=== PATIENT | male | born 1960 | race Caucasian/White ===

== ENCOUNTER 2019-02-16 15:30 | Outpatient (CLI) | payer MEDICARE ==
[~2019-02-16] VITALS: Ht 165.1 cm; Wt 104.5 kg
[~2019-02-16 15:30] MED LIST: LORA1TAB PO; NORVASC; ONDAN4ODT PO; [UNRECOGNIZED DRUG - OTHER]; [UNRECOGNIZED DRUG - REMARK]
[2019-02-16] MEDS ORDERED: LOSA100T57 PO (16:07)
[2019-02-16] MEDS ORDERED: TRAM50TA2 PO (16:07)
[2019-02-16] MEDS ORDERED: HYDR25TA4 PO (16:07)
[2019-02-16] MEDS ORDERED: VARD20TA30 PO (16:07)
[2019-02-16] MEDS ORDERED: TRIA0.2581 PO (16:07)
[2019-02-16] MEDS ORDERED: OMEP20TA33 PO (16:07)
[2019-02-16] MEDS ORDERED: CYCL10TA9 PO (16:07)
[2019-02-16] MEDS ORDERED: NAPR-915 PO (16:07)
[2019-02-16] MEDS ORDERED: ATOR20TA66 PO (16:07)
[2019-02-16] MEDS ORDERED: ASPI-808 PO (16:07)
[2019-02-21] MEDS ORDERED: PANT40TA2 PO (13:20)
== END 2019-02-16 16:08 | disposition home or self-care (01) ==
LOC: PREOP 15:30
PROVIDERS: ATTEND Surgery
DX: Z01.818 Encounter for other preprocedural examination (principal)

== ENCOUNTER 2022-04-09 11:14 | Observation (INO) | payer MEDICARE ==
[~2022-04-09] VITALS: Ht 162.5 cm; Wt 92.9 kg
[~2022-04-09 11:14] MED LIST changes: +ASPI-808 PO; +ATOR20TA66 PO; +CYCL10TA25 PO; +HYDR25TA4 PO; +LOSA100T57 PO; +NAPR-915 PO; +OMEP20TA33 PO; +PANT40TA2 PO; +TRIA0.2581 PO; +TRM50T PO; +VARD20TA30 PO
[2022-04-09 11:36] LABS: BASOPHILS # (AUTO) 0.1 10^3/uL (0.0-0.1); BASOPHILS % (AUTO) 1 % (0-10); EOSINOPHILS # (AUTO) 0.2 10^3/uL (0.0-0.3); EOSINOPHILS % (AUTO) 3 % (0-10); HEMATOCRIT 50 % (40-54); HEMOGLOBIN 16.8 g/dL (13.3-17.7); LYMPHOCYTES # (AUTO) 2.1 10^3/uL (1.0-4.0); LYMPHOCYTES % (AUTO) 27 % (12-44); MEAN CORPUSCULAR HEMOGLOBIN 27 pg (25-34); MEAN CORPUSCULAR HGB CONC 34 g/dL (32-36); MEAN CORPUSCULAR VOLUME 82 fL (80-99); MEAN PLATELET VOLUME 11.9 fL (9.0-12.2); MONOCYTES # (AUTO) 0.9 10^3/uL (0.0-1.0); MONOCYTES % (AUTO) 12 % (0-12); NEUTROPHILS # (AUTO) 4.5 10^3/uL (1.8-7.8); NEUTROPHILS % (AUTO) 57 % (42-75); PLATELET COUNT 223 10^3/uL (130-400); WHITE BLOOD COUNT 7.8 10^3/uL (4.3-11.0)
--- NOTE | 2022-04-09 11:43 | ED Neurological Problem ---
General Chief Complaint: Neuro-Stroke Like Symptoms Stated Complaint: POSSIBLE STROKE Source: patient Exam Limitations: no limitations History of Present Illness Date Seen by Provider: Apr 09, 2022 Time Seen by Provider: 11:25 Initial Comments 62-year-old male presents to the ER via private vehicle with significant other with complaints of stroke-like symptoms. Patient had first presented to the clinic, clinic sent him over here. Patient reports his symptoms started yesterday morning. Patient reports he woke up yesterday morning around 2 or 3:00 in the morning with complaints of a headache and he took some medication for it at that time. Reports he woke up later in the morning with weakness to his right side. Patient reports feeling like his face is drooping on the right side. Reports feeling as though his compliance examiner strength on the right is weaker. Reports that when he is walking he feels as though he has difficulty with his right leg at times. Patient is hypertensive. Patient states he recently restarted his losartan he had been off of it for 6 months to 1 year. Patient reports he has not seen his primary care provider in over a year. States he occasionally checks his blood pressure at home and decided to restart his medication on his own. Patient currently takes aspirin, atorvastatin, losartan, cyclobenzaprine, and vardenafil occasionally. He last took vardenafil 2 months ago. Timing/Duration: 24 hours Allergies and Home Medications Allergies Coded Allergies: No Known Drug Allergies (Verified , 02/21/19) Patient Home Medication List Home Medication List Reviewed: Yes Aspirin (Aspirin) 325 Mg Tablet, 325 MG PO DAILY, (Reported) Entered as Reported by: LYNN CASTRO on 02/16/191606 Atorvastatin Calcium (Atorvastatin Calcium) 20 Mg Tablet, 20 MG PO HS, (Reported) Entered as Reported by: LYNN CASTRO on 02/16/191606 Cyclobenzaprine HCl (Cyclobenzaprine HCl) 10 Mg Tablet, 10 MG PO DAILY, (Reported) Entered as Reported by: LYNN CASTRO on 02/16/191606 Hydrochlorothiazide (Hydrochlorothiazide) 25 Mg Tablet, 25 MG PO DAILY, (Reported) Entered as Reported by: LYNN CASTRO on 02/16/191606 Losartan Potassium (Losartan Potassium) 100 Mg Tablet, 100 MG PO DAILY, (Repo rted) Entered as Reported by: LYNN CASTRO on 02/16/19 160 Naproxen (Naproxen) 500 Mg Tablet, 500 MG PO BID WITH MEALS, (Reported) Entered as Reported by: LYNN CASTRO on 02/16/19 160 Pantoprazole Sodium (Protonix) 40 Mg Tablet.dr, 40 MG PO DAILY Prescribed by: EDMUND PEREZ on 02/21/19 1320 Tramadol HCl (Tramadol HCl) 50 Mg Tablet, 50 MG PO Q6H PRN for PAIN-MILD, (Reported) Entered as Reported by: LYNN CASTRO on 02/16/19 160 Triazolam (Triazolam) 0.25 Mg Tablet, 0.25 MG PO HS PRN for SLEEP, (Reported) Entered as Reported by: LYNN CASTRO on 02/16/19 160 Vardenafil HCl (Levitra) 20 Mg Tablet, 20 MG PO DAILY PRN for ERECTILE DYSFUNCTION, (Reported) Entered as Reported by: LYNN CASTRO on 02/16/19 160 Review of Systems Review of Systems Constitutional: weakness Eyes: No Symptoms Reported Respiratory: no symptoms reported Cardiovascular: no symptoms reported Genitourinary: no symptoms reported Musculoskeletal: muscle weakness Skin: no symptoms reported Psychiatric/Neurological: Numbness (right hand), Tingling (right hand) Past Zxyghoe-Kgpjzc-Ridkol Hx Patient Social History Smoking Status: Former Smoker Substance type: Marijuana Substance frequency: Daily Alcohol Use?: Yes Alcohol Frequency: Once in a while Seasonal Allergies Seasonal Allergies: Yes Past Medical History Surgeries: Yes (umb hernia, heel fx, ) Orthopedic (right foot) Respiratory: Yes Sleep Apnea Currently Using CPAP: No (can't tolerate) Cardiac: Yes High Cholesterol, Hypertension, Palpitations Neurological: No Genitourinary: No Gastrointestinal: Yes Gastroesophageal Reflux Musculoskeletal: Yes Arthritis, Chronic Back Pain, Fractures Endocrine: No HEENT: No Cancer: No Psychosocial: No Integumentary: No Blood Disorders: No Physical Exam Vital Signs Vital Signs - First Documented 04/09/22 11:18 Pulse 70 Resp 16 B/P (MAP) 241/133 (169) Pulse Ox 97 O2 Delivery Room Air Capillary Refill : Height, Weight, BMI Height: '" Weight: lbs. oz. kg; 38.33 BMI Method: General Appearance: WD/WN, no apparent distress HEENT: PERRL/EOMI Neck: full range of motion, supple, normal inspection Respiratory: lungs clear, normal breath sounds, no respiratory distress, no accessory muscle use Cardiovascular: regular rate, rhythm, no edema, no gallop, no JVD, no murmur Neurologic/Psychiatric: data virtualization consultant II-XII nml as tested, alert, normal mood/affect, oriented x 3, sensory deficit (tingling right hand, sensation intact) Crainal Nerves: normal hearing, normal speech, PERRL Coordination/Gait: normal finger to nose, normal gait Motor/Sensory: no motor deficit Skin: normal color, warm/dry Stroke Onset of Symptoms Date of Onset of Symptoms: Apr 08, 2022 NIH Stroke Scale Assessment Select: Initial Level of Consciousness: 0=Alert (0), Level of Consciousness-Questions: 0=Answers both month/age (0), LOC Commands: 0=Performs both tasks (0), Gaze: Normal (0), Visual Akbar: 0=No visual loss (0), Facial Movement (Facial Paresis): 0=Normal symmetrical mnt (0), Motor Function-Arms Right: 0=No drift (0), Motor Function-Arms Left: 0=No drift (0), Motor Function-Legs Right: 0=No drift (0), Motor Function-Legs Left: 0=No drift (0), Limb Ataxia: 0=Absent (0), Sensory: 0=Normal:no loss (0), Best Language: 0=No aphasia (0), Dysarthria: 0=Normal (0), Extinction & I nattention: 0=No abnormality (0), Total: 0 Progress/Results/Core Measures Results/Orders Lab Results Laboratory Tests Test 04/09/22 11:20 04/09/22 11:23 04/09/22 11:48 Range/Units White Blood Count 7.8 4.3-11.0 10^3/uL Red Blood Count 6.13 H 4.30-5.52 10^6/uL Hemoglobin 16.8 13.3-17.7 g/dL Hematocrit 50 40-54 % Mean Corpuscular Volume 82 80-99 fL Mean Corpuscular Hemoglobin 27 25-34 pg Mean Corpuscular Hemoglobin Concent 34 32-36 g/dL Red Cell Distribution Width 14.7 H 10.0-14.5 % Platelet Count 223 130-400 10^3/uL Mean Platelet Volume 11.9 9.0-12.2 fL Immature Granulocyte % (Auto) 0 % Neutrophils (%) (Auto) 57 42-75 % Lymphocytes (%) (Auto) 27 12-44 % Monocytes (%) (Auto) 12 0-12 % Eosinophils (%) (Auto) 3 0-10 % Basophils (%) (Auto) 1 0-10 % Neutrophils # (Auto) 4.5 1.8-7.8 10^3/uL Lymphocytes # (Auto) 2.1 1.0-4.0 10^3/uL Monocytes # (Auto) 0.9 0.0-1.0 10^3/uL Eosinophils # (Auto) 0.2 0.0-0.3 10^3/uL Basophils # (Auto) 0.1 0.0-0.1 10^3/uL Immature Granulocyte # (Auto) 0.0 0.0-0.1 10^3/uL Prothrombin Time 16.3 H 12.2-14.7 SEC INR Comment 1.3 0.8-1.4 Activated Partial Thromboplast Time 28 24-35 SEC D-Dimer 0.30 0.00-0.49 UG/ML Sodium Level 137 135-145 MMOL/L Potassium Level 4.1 3.6-5.0 MMOL/L Chloride Level 105 98-107 MMOL/L Carbon Dioxide Level 23 21-32 MMOL/L Anion Gap 9 5-14 MMOL/L Blood Urea Nitrogen 23 H 7-18 MG/DL Creatinine 1.23 0.60-1.30 MG/DL Estimat Glomerular Filtration Rate 66 BUN/Creatinine Ratio 19 Glucose Level 105 70-105 MG/DL Calcium Level 10.0 8.5-10.1 MG/DL Corrected Calcium 9.8 8.5-10.1 MG/DL Total Bilirubin 0.5 0.1-1.0 MG/DL Aspartate Amino Transf (AST/SGOT) 19 5-34 U/L Alanine Aminotransferase (ALT/SGPT) 23 0-55 U/L Alkaline Phosphatase 63 40-136 U/L Troponin I < 0.028 <0.028 NG/ML Total Protein 7.5 6.4-8.2 GM/DL Albumin 4.2 3.2-4.5 GM/DL Glucometer 107 70-110 MG/DL Urine Color YELLOW Urine Clarity CLEAR Urine pH 5.0 5-9 Urine Specific [place] >=1.030 1.016-1.022 Urine Protein TRACE H NEGATIVE Urine Glucose (UA) NEGATIVE NEGATIVE Urine Ketones NEGATIVE NEGATIVE Urine Nitrite NEGATIVE NEGATIVE Urine Bilirubin NEGATIVE NEGATIVE Urine Urobilinogen 0.2 < = 1.0 MG/DL Urine Leukocyte Esterase NEGATIVE NEGATIVE Urine RBC (Auto) 1+ H NEGATIVE Urine RBC NONE /HPF Urine WBC RARE /HPF Urine Squamous Epithelial Cells RARE /HPF Urine Crystals NONE /LPF Urine Bacteria TRACE /HPF Urine Casts PRESENT /LPF Urine Hyaline Casts RARE /LPF Urine Mucus NEGATIVE /LPF Urine Culture Indicated NO My Orders Orders - VISHAL BARNES APRN Accucheck Stat ONCE (04/09/22 11:16) Vital Signs Stroke Patient Q15M (04/09/22 11:16) Monitor-Rhythm Ecg Trace Only (04/09/22 11:16) Dysphagia Screening Tool Q10MX1 (04/09/22 11:16) Cbc With Automated Diff (04/09/22 11:23) Protime With Inr (04/09/22 11:23) Partial Thromboplastin Time (04/09/22 11:23) Comprehensive Metabolic Panel (04/09/22 11:23) Fibrin Degradation Products (04/09/22 11:23) Troponin I [place] (04/09/22 11:23) Ua Culture If Indicated (04/09/22 11:23) Chest 1 View, Ap/Pa Only (04/09/22 11:23) Ekg Tracing (04/09/22 11:23) Ed Iv/Invasive Line Start (04/09/22 11:23) Vital Signs Stroke Patient Q15M (04/09/22 11:23) Ct Head Wo-R/O Stroke (04/09/22 11:23) O2 (04/09/22 11:23) Intake & Output 06,14, (04/09/22 11:23) Dysphagia Screening Tool Q10MX1 (04/09/22 11:23) Lipid Panel (04/10/22 06:00) Labetalol Injection (Normodyne Injection (04/09/22 12:00) Ed Iv/Invasive Line Start (04/09/22 12:11) Ns Iv 500 Ml (Sodium Chloride 0.9%) (04/09/22 12:15) Ed Admission (Communication) (04/09/22 12:57) Medications Given in ED Current Medications Medications Dose Ordered Sig/Alcides Route Start Time Stop Time Status Last Admin Dose Admin Labetalol HCl 10 mg ONCE ONCE IV 04/09/22 12:00 04/09/22 12:01 DC 04/09/22 12:03 10 MG Sodium Chloride 500 ml @ 0 mls/hr Q0M ONCE IV 04/09/22 12:15 04/09/22 12:16 DC 04/09/22 12:19 0 MLS/HR Vital Signs/I&O 04/09/22 11:18 Pulse 70 Resp 16 B/P (MAP) 241/133 (169) Pulse Ox 97 O2 Delivery Room Air FSBG Bedside Testing Finger Stick Blood Glucose: 107 Progress Progress Note #1: Time: 11:35 Progress Note Complaints of unilateral weakness/numbness/tingling, complaints of drooping of right side of face - stroke work-up initiated. Patient is outside of the window for tPA. Progress Note #2: Time: 12:00 Progress Note Due to elevated blood pressure, will order labetalol to see if this improves symptoms. Progress Note #3: Time: 12:25 Progress Note Patient now no longer wants to be admitted. Discussed with patient risks of leaving. Patient is going to discuss with significant other whether he should stay or not. Progress Note #4: Time: 12:55 Progress Note Pt agrees to stay for admission. Initial ECG Impression Date: Apr 09, 2022 Initial ECG Impression Time: 11:29 Initial ECG Rate: 65 Initial ECG Rhythm: Normal Sinus, PVC Initial ECG Intervals: Normal Initial ECG Impression: Normal Diagnostic Imaging Diagonstic Imaging: CT Plain Films/CT/US/NM/MRI: head Comments Date of Exam:04/09/22 CT HEAD WO-R/O STROKE Clinical Indication: Patient with right-sided numbness tingling and weakness/began yesterday morning. Patient just resumed blood pressure medicine few days ago. Exam: Axial CT scan of the brain without IV contrast with coronal and sagittal reformatted images. Auto Exposure Controls were utilized during the CT exam to meet ALARA standards for radiation dose reduction. Comparison: None Findings: There is no evidence of acute cerebral infarct, intracranial hemorrhage, or gross mass effect. The brain parenchymal volume appears appropriate for patient's age. There are subtle patchy areas of low-attenuation white matter changes involving both cerebral hemispheres, likely representing chronic small vessel ischemic disease. There is normal ballesteros-white matter distinction. There is no significant midline shift or herniation. There is no evidence of hydrocephalus. The basal cisterns are unremarkable. There is a chronic bony deformity involving the medial wall the left orbit. Skull, extracranial soft tissue, and orbits are unremarkable. There is mild mucosal thickening involving the ethmoid sinus and frontal sinus. Temporal bones show no significant abnormality. Impression: 1: There is no CT evidence of acute intracranial process. There is no dense vessel sign. 2: Mild age related brain parenchymal changes. Results of this report was discussed with Dr. Hendrickson via the telephone on 04/09/2022 at 1155 hours. Dictated on workstation # [id number] Dict: 04/09/22 1144 Trans: 04/09/22 1205 SREEDHAR [id number] Interpreted by: ODALYS WALDRON MD Electronically signed by: Diagonstic Imaging: Xray Plain Films/CT/US/NM/MRI: chest Comments Date of Exam:04/09/22 CHEST 1 VIEW, AP/PA ONLY CLINICAL INDICATION: Patient with right-sided numbness and tingling. EXAM: Portable chest x-ray upright view. COMPARISON: None. FINDINGS: Lungs/pleura: Lungs are clear. There is no pneumothorax. There is no pleural effusion. Mediastinum: Unremarkable. Pulmonary vasculature: Unremarkable. Heart: Upper limits of normal heart size for portable projection.. Bones/extrathoracic soft tissue: There are degenerative spurs involving the thoracic spine. IMPRESSION: There is no radiographic evidence of acute cardiopulmonary process. Dictated on workstation # [id number] Dict: 04/09/22 1142 Trans: 04/09/22 1147 CVB [id number] Interpreted by: ODALYS WALDRON MD Electronically signed by: Departure Communication (Admissions) Time/Spoke to Admitting Phy: 12:18 Discussed patient case with Dr. Haider. Dr. Haider agrees pt should be admitted for observation. Impression Primary Impression: Hypertensive urgency Additional Impression: Arm paresthesia, right Disposition: ADMITTED INPATIENT Condition: Stable Admissions Decision to Admit Reason: Admit from ER (General) Decision to Admit/Date: Apr 09, 2022 Time/Decision to Admit Time: 12:15 Departure-Patient Inst. Referrals: [facility] (PCP/Family) Primary Care Physician VISHAL BARNES APRN Apr 09, 2022 11:43
[2022-04-09 11:47] LABS: ALBUMIN 4.2 GM/DL (3.2-4.5); CHLORIDE 105 MMOL/L (98-107); POTASSIUM 4.1 MMOL/L (3.6-5.0); SODIUM 137 MMOL/L (135-145)
--- NOTE | 2022-04-09 11:48 | Diagnostic Imaging Report ---
CLINICAL INDICATION: Patient with right-sided numbness and tingling. EXAM: Portable chest x-ray upright view. COMPARISON: None. FINDINGS: Lungs/pleura: Lungs are clear. There is no pneumothorax. There is no pleural effusion. Mediastinum: Unremarkable. Pulmonary vasculature: Unremarkable. Heart: Upper limits of normal heart size for portable projection.. Bones/extrathoracic soft tissue: There are degenerative spurs involving the thoracic spine. IMPRESSION: There is no radiographic evidence of acute cardiopulmonary process. Dictated by: Dictated on workstation # [id number]
[2022-04-09 11:49] LABS: GLUCOSE 105 MG/DL (70-105); TOTAL PROTEIN 7.5 GM/DL (6.4-8.2)
[2022-04-09 11:50] LABS: CARBON DIOXIDE 23 MMOL/L (21-32)
[2022-04-09 11:51] LABS: BILIRUBIN,TOTAL 0.5 MG/DL (0.1-1.0)
[2022-04-09 11:53] LABS: ALKALINE PHOSPHATASE 63 U/L (40-136); CREATININE SERUM 1.23 MG/DL (0.60-1.30); GFR ESTIMATED 66
[2022-04-09 11:54] LABS: BUN/CREATININE RATIO 19
[2022-04-09 11:56] LABS: ALANINE AMINOTRANSFERASE 23 U/L (0-55)
[2022-04-09 11:56] LABS: BILIRUBIN,URINE NEGATIVE (NEGATIVE); CLARITY,URINE CLEAR; COLOR,URINE YELLOW; GLUCOSE, URINE (UA) NEGATIVE (NEGATIVE); KETONES,URINE NEGATIVE (NEGATIVE); LEUKOCYTE ESTERASE ,URINE NEGATIVE (NEGATIVE); NITRITE,URINE NEGATIVE (NEGATIVE); PROTEIN,URINE TRACE (NEGATIVE)
[2022-04-09 11:59] LABS: FIBRIN DEGRADATION PRODUCTS 0.3 UG/ML (0.00-0.49); INR 1.3 (0.8-1.4); PROTHROMBIN TIME PATIENT 16.3 SEC (12.2-14.7)
[2022-04-09] MEDS ORDERED: LABETALOL HCL 20 MG/4 ML VIAL IV ONE (12:00)
[2022-04-09 12:03] LABS: BACTERIA,URINE TRACE /HPF; SQUAMOUS EPITHELIAL CELL,UR RARE /HPF; WBC,URINE RARE /HPF
[2022-04-09 12:04] LABS: HYALINE CASTS, URINE RARE /LPF
--- NOTE | 2022-04-09 12:05 | Diagnostic Imaging Report ---
Clinical Indication: Patient with right-sided numbness tingling and weakness/began yesterday morning. Patient just resumed blood pressure medicine few days ago. Exam: Axial CT scan of the brain without IV contrast with coronal and sagittal reformatted images. Auto Exposure Controls were utilized during the CT exam to meet ALARA standards for radiation dose reduction. Comparison: None Findings: There is no evidence of acute cerebral infarct, intracranial hemorrhage, or gross mass effect. The brain parenchymal volume appears appropriate for patient's age. There are subtle patchy areas of low-attenuation white matter changes involving both cerebral hemispheres, likely representing chronic small vessel ischemic disease. There is normal ballesteros-white matter distinction. There is no significant midline shift or herniation. There is no evidence of hydrocephalus. The basal cisterns are unremarkable. There is a chronic bony deformity involving the medial wall the left orbit. Skull, extracranial soft tissue, and orbits are unremarkable. There is mild mucosal thickening involving the ethmoid sinus and frontal sinus. Temporal bones show no significant abnormality. Impression: 1: There is no CT evidence of acute intracranial process. There is no dense vessel sign. 2: Mild age related brain parenchymal changes. Results of this report was discussed with Dr. Hendrickson via the telephone on 04/09/2022 at 1155 hours. Dictated by: Dictated on workstation # [id number]
[2022-04-09] MEDS ORDERED: NS IV 500 ML 500 ML IV ONE (12:15)
[2022-04-09] MEDS ORDERED: NS IV 1000 ML 1,000 ML IV SCH (14:30)
[2022-04-09 14:35] VITALS: BP 186/94
[2022-04-09] MEDS ORDERED: LOSARTAN 100 MG (COZAAR) TABLET PO SCH (14:45)
--- NOTE | 2022-04-09 14:48 | Physical Therapy Progress Note ---
Therapy Progress Note Order for PT evaluation received. However, patient states he doesn't need physical therapy, has no balance issues and is able to ambulate on his own, safely. Will DC from PT services at this time. PEDRO ROMERO PT Apr 09, 2022 14:48
[2022-04-09] MEDS ORDERED: ENOXAPARIN 40 MG/0.4 ML (LOVENOX) SYR SQ SCH ×2 (15:00)
[2022-04-09 16:00] VITALS: BP 162/100
[2022-04-09] MEDS ORDERED: IBUP-2473 PO (16:05)
[2022-04-09] MEDS ORDERED: ACET-2267 PO (16:05)
[2022-04-09 16:27] VITALS: BP 241/133
[2022-04-09] MEDS ORDERED: RT-ALBUTEROL SULF 2.5 MG/3 ML PRE-MIX VIAL INH PRN (16:45)
[2022-04-09 19:37] VITALS: BP 170/98
[2022-04-09 23:27] VITALS: BP 139/70
[2022-04-09] MEDS ORDERED: hydrALAZINE (APESOLINE) 20 MG/ML VIAL IV ONE (23:45)
[2022-04-09] MEDS ORDERED: HydroCHLOROthiazide CAP/TABLET 12.5 MG TAB PO ONE (23:45)
[2022-04-10] VITALS: BP 189/111
[2022-04-10] MEDS ORDERED: amLODIPine 10 MG (NORVASC) TAB PO ONE
[2022-04-10] MEDS ORDERED: HydroCHLOROthiazide CAP/TABLET 12.5 MG TAB PO SCH (09:00)
[2022-04-10] MEDS ORDERED: amLODIPine 10 MG (NORVASC) TAB PO SCH (09:00)
[2022-04-10] MEDS ORDERED: PHARMACY TO DOSE SQ SCH (09:00)
== END 2022-04-10 01:10 | disposition left against medical advice (07) ==
LOC: EDUNIT# 11:14 → ER 11:16 → 4TH 12:58 → UNDOADMOB 12:58 → 4TH 14:22 → UNDODISOB 04-10 01:10
PROVIDERS: ADMIT Family Medicine; ATTEND Family Medicine
DX: I16.0 Hypertensive urgency (principal); Z53.21 Procedure and treatment not carried out due to patient leaving prior to being seen by health care provider
CPT/HCPCS: 70450; 71045; 80053; 81000; 82947; 84484; 85025; 85379; 85610; 85730; 93005; 93041; 96361; 96372; 96375; 99284; G0378; 36415

== ENCOUNTER → 2022-12-02 | Outpatient (CLI) | payer OTHER, MEDICARE ==
[~2022-12-02] MED LIST changes: +ACET-2267 PO; +IBUP-2473 PO; -LOSA100T57 PO; +LOSA100T58 PO
[2022-12-02 14:17] VITALS: BP 137/83
--- NOTE | 2022-12-02 17:17 | Cardiology Stress Test Report ---
Stress Test Report Date of Procedure/Referring: Date of Procedure: Dec 02, 2022 [facility] Admitting Physician Admitting Physician: Attending Physician: Saadia Jacobson MD Indications: CP Baseline Heart Rate: 62 Baseline Blood Pressure: Blood Pressure Systolic: 137 Blood Pressure Diastolic: 83 Baseline EKG: Baseline EKG: NSR Summary/Conclusion: Summary: In summary, the patient started exercising with a baseline heart rate, blood pressure and EKG mentioned above Patient was able to exercise for a total of 5.30 minutes on Tu protocol, METs 7.1 Maximum heart rate 129 Maximum blood pressure 232/103 Stress EKG, Minimal nondiagnostic changes Recovery EKG , Return to baseline Conclusion: Fair exercise tolerance for 5 minutes and 30 seconds on standard Tu protocol, 7.1 METS achieving 82% of maximal expected heart rate Appropriate heart rate response to exercise with severe hypertensive response to exercise with peak blood pressure 232/103 return to baseline during recovery [address] depression in lead II, III and aVF V4 and V5 at peak exercise level return to baseline during recovery, nondiagnostic EKG changes If high suspicion of underlying cardiac chest pain recommend evaluating stress Myoview Copy Copies To 1: [facility]/VICTORIANO TRAN MD Dec 02, 2022 17:17
== END ==
LOC: CARD 13:24
PROVIDERS: ATTEND Student in an Organized Health Care Education/Training Program
DX: R07.9 Chest pain, unspecified (principal)
CPT/HCPCS: 93017